=== PATIENT | female | born 1980 | race Caucasian/White ===

== ENCOUNTER 2016-05-28 08:09 | Emergency (ER) | payer MEDICAID ==
[2016-05-28 08:24] VITALS: BP 150/108
--- NOTE | 2016-05-28 08:49 | EDM.PDOC ---
ED HPI ENT - General Chief Complaint: ENT Problem Stated Complaint: TOOTH PAIN Time Seen by Provider: 05/28/16 08:35 Source: Reports: Patient History Limitations: Reports: No limitations - History of Present Illness INITIAL COMMENTS - FREE TEXT/NARRATIVE: In this lady comes in with tooth pain for 2 days. One of her very carious teeth broke. She's complaining of severe pain. She doesn't have any dental insurance so doesn't get regular dental care and she's lost many teeth. She's in every day smoker. The [facility] closed today and Tuesday. She's not able to get care anywhere else. She did try some Anbesol said that didn't work - Related Data Allergies/ADRs: Allergies Allergy/AdvReac Type Severity Reaction Status Date / Time codeine Allergy Itching Verified 05/28/16 08:24 ketorolac tromethamine Allergy Airway Verified 05/28/16 08:24 [From Toradol] Tightness Sulfa (Sulfonamide Allergy Airway Verified 05/28/16 08:24 Antibiotics) Tightness tramadol Allergy Hives Verified 05/28/16 08:24 Home Meds: Home Meds NK [No Known Home Meds] 05/28/16 [History] Past Medical History HEENT History: Reports: Impaired vision Gastrointestinal History: Reports: GERD, Hemorrhoids, Other (see below) Other Gastrointestinal History: ulcers. 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 pill addiction Endocrine/Metabolic History: Reports: Hyperthyroidism Oncologic (Cancer) History: Reports: Other (see below) Other Oncologic History: pre cancer cells cervix Dermatologic History: Reports: Psoriasis - Infectious Disease History Infectious Disease History: Reports: Chicken pox, Shingles - Past Surgical History HEENT Surgical History: Reports: Tonsillectomy, Other (see below) Other HEENT Surgeries/Procedures: throat surgery Social & Family History - Tobacco Use Smoking Status *Q: Current Every Day Smoker Years of Tobacco use: 20 Packs/Tins Daily: 0.5 Second Hand Smoke Exposure: Yes - Caffeine Use Caffeine Use: Reports: Soda - Alcohol Use Days Per Week of Alcohol Use: 0 - Recreational Drug Use Recreational Drug Use: No Recreational Drug Type: Reports: Oxycodone ED ROS ENT - Review of Systems Review Of Systems: ROS reveals no pertinent complaints other than HPI. ED EXAM, ENT - Physical Exam Exam: See Below Exam Limited By: No limitations General Appearance: alert, WD/WN, moderate distress Mouth/Throat: Other (There are a number of missing and carious teeth. One of the teeth to the upper right jaw bleeds when the canine to severely carious and looks like about half of it is broken off. The area that is hurting. No obvious abscess.) Course - Vital Signs Last Recorded V/S: Last Vital Signs Temp 36.6 C 05/28/16 08:20 Pulse 118 H 05/28/16 08:20 Resp 14 05/28/16 08:20 BP 150/108 H 05/28/16 08:20 Pulse Ox 98 05/28/16 08:20 Departure - Departure Time of Disposition: 08:49 Disposition: Home, Self-Care 01 Condition: fair Clinical Impression: Fracture of tooth, Dental caries extending into dentin Forms: ED Department Discharge Additional Instructions: Taken Narco 5/500 (#18) one or 2 tablets every 4 hours as needed for pain. This medication can cause sedation use with caution Take Penicillin VK 500 mg 4 times a day. See dentist as soon as possible.
== END 2016-05-28 09:00 | disposition home or self-care (01) ==
LOC: JP.ED 08:09
DX: S02.5XXA Fracture of tooth (traumatic), initial encounter for closed fracture (principal); K02.62 Dental caries on smooth surface penetrating into dentin; F17.210 Nicotine dependence, cigarettes, uncomplicated; Z98.890 Other specified postprocedural states; Z88.2 Allergy status to sulfonamides; Z88.5 Allergy status to narcotic agent; Z88.8 Allergy status to other drugs, medicaments and biological substances
CPT/HCPCS: 99283

== ENCOUNTER 2016-06-18 13:36 | Emergency (ER) | payer MEDICAID ==
[2016-06-18 14:16] VITALS: BP 139/93
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
--- NOTE | 2016-06-21 12:27 | CR ---
Shoulder Comp Rt HISTORY: Injury FINDINGS: There is normal alignment of the glenohumeral as well as AC joints. No fractures are demon strated. There are no significant degenerative changes. The soft tissues are unremarkable. IMPRESSION: Negative exam of the shoulder.
== END 2016-06-18 15:38 | disposition home or self-care (01) ==
LOC: JP.ED 13:36
DX: S40.011A Contusion of right shoulder, initial encounter (principal); S14.3XXA Injury of brachial plexus, initial encounter; F17.210 Nicotine dependence, cigarettes, uncomplicated; K21.9 Gastro-esophageal reflux disease without esophagitis; F43.10 Post-traumatic stress disorder, unspecified; E03.9 Hypothyroidism, unspecified; Z88.5 Allergy status to narcotic agent; Z88.2 Allergy status to sulfonamides; Z90.89 Acquired absence of other organs; W19.XXXA Unspecified fall, initial encounter
CPT/HCPCS: 73030-26-RT; 73030-RT; 99284

== ENCOUNTER 2016-06-21 11:02 | Emergency (ER) | payer MEDICAID ==
[2016-06-21 12:29] VITALS: BP 150/96
--- NOTE | 2016-06-21 13:43 | EDM.PDOC ---
[id number] 4d PAIN RT ARM GETTING WORSE Time Seen by Provider: 06/21/16 12:40 Source: Reports: Patient History Limitations: Reports: No limitations - History of Present Illness INITIAL COMMENTS - FREE TEXT/NARRATIVE: 35-year-old in for recheck of persistent right neuropathic pain of the shoulder. She's having difficulty performing her duties at work. She still has pain but has intense radiating down the anterior aspect of the arm, numbness and paresthesias into the thumb and first finger and it feels "cold". Method of Injury: direct blow, fall Severity: moderate Pain/Injury Location: Reports: upper extremity, right Consciousness: Reports: no loss of consciousness Allergies/ADRs: Allergies codeine Allergy (Verified 06/21/16 12:32) Itching ketorolac tromethamine [From Toradol] Allergy (Verified 06/21/16 12:32) Airway Tightness Sulfa (Sulfonamide Antibiotics) Allergy (Verified 06/21/16 12:32) Airway Tightness tramadol Allergy (Verified 06/21/16 12:32) Hives Home Medications: Ambulatory Orders Acetaminophen [Tylenol Extra Strength] 1 tab PO ASDIRECTED 06/21/16 [Confirmed 06/21/16] Hydrocodone/Acetaminophen [Aurora 5-325] 1 tab PO Q6H 06/21/16 [Confirmed ] methylPREDNISolone [Medrol] 1 dose PO ASDIRECTED 06/21/16 [Confirmed 06/21/16] Past Medical History HEENT History: Reports: Impaired vision Gastrointestinal History: Reports: GERD, Hemorrhoids, Other (see below) Other Gastrointestinal History: ulcers. 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 Endocrine/Metabolic History: Reports: Hyperthyroidism Oncologic (Cancer) History: Reports: Other (see below) Other Oncologic History: pre cancer cells cervix Dermatologic History: Reports: Psoriasis - Infectious Disease History Infectious Disease History: Reports: Chicken pox - Past Surgical History HEENT Surgical History: Reports: Tonsillectomy, Other (see below) Other HEENT Surgeries/Procedures: throat surgery Female Surgical History: Reports: Other (see below) Other Female Surgeries/Procedures: cervical biopsy Social & Family History - Tobacco Use Smoking Status *Q: Current Every Day Smoker Years of Tobacco use: 20 Packs/Tins Daily: 0.5 Second Hand Smoke Exposure: No - Caffeine Use Caffeine Use: Reports: Soda Other Caffeine Use: 12 per day - Alcohol Use Days Per Week of Alcohol Use: 0 - Recreational Drug Use Recreational Drug Use: No Recreational Drug Type: Reports: Oxycodone Review of Systems - Review of Systems Review Of Systems: See Below Constitutional: Denies: fever Respiratory: Denies: Shortness of Breath Cardiovascular: Denies: chest pain GI/Abdominal: Denies: Abdominal pain Skin: Denies: bruising Neurological: Reports: Paresthesia (Right hand) Trauma Exam - Physical Exam Exam: See Below Exam Limited By: No limitations General Appearance: Reports: alert, no apparent distress (Patient is in no distress but is uncomfortable) Head: Reports: atraumatic Neck: Reports: non-tender Extremities: Reports: other (Has significant tenderness to palpation over the anterior aspect of the shoulder and upper right arm. Increased pain with abduction, even passive. Slight decreased grasp strength of the right hand possibly due to pain) Course - Vital Signs Last Recorded V/S: Last Vital Signs Temp 97.2 F 06/21/16 12:35 Pulse 84 06/21/16 12:35 Resp 18 06/21/16 12:35 BP 150/96 H 06/21/16 12:35 Pulse Ox 98 06/21/16 12:35 - Orders/Labs/Meds Orders: Active Orders 24 hr Category Date Time Status DME for Discharge [COMM] Stat Oth 06/21/16 12:47 Ordered - Re-Assessments/Exams Free Text/Narrative Re-Assessment/Exam: 06/21/16 13:42 Patient was given a refill of her hydrocodone for pain, placed in a sling and was asked to rest the arm for the next 2 days. She was given 20 total hydrocodone to use sparingly. Departure - Departure Time of Disposition: 13:52 Disposition: Home, Self-Care 01 Condition: good Clinical Impression: Brachial plexus injury, right Qualifiers: Encounter type: subsequent encounter Qualified Code(s): S14.3XXD - Injury of brachial plexus, subsequent encounter Instructions: Shoulder Pain Referrals: PCP,None [Primary Care Provider] - Forms: ED Department Discharge Care Plan Goals: Sling arm for the next 2 days. Pain medication as needed and finish the steroid as prescribed. Followup will be established. - My Orders Last 24 Hours: My Active Orders 06/21/16 12:47 DME for Discharge [COMM] Stat - Assessment/Plan Last 24 Hours: My Active Orders 06/21/16 12:47 DME for Discharge [COMM] Stat
== END 2016-06-21 13:51 | disposition home or self-care (01) ==
LOC: JP.ED 11:02
DX: S14.3XXD Injury of brachial plexus, subsequent encounter (principal); F17.210 Nicotine dependence, cigarettes, uncomplicated; Z85.41 Personal history of malignant neoplasm of cervix uteri; Z98.890 Other specified postprocedural states; Z88.2 Allergy status to sulfonamides; Z88.5 Allergy status to narcotic agent; Z88.8 Allergy status to other drugs, medicaments and biological substances; W19.XXXA Unspecified fall, initial encounter
CPT/HCPCS: 99283

== ENCOUNTER 2016-09-23 08:53 | Emergency (ER) | payer MEDICAID ==
[2016-09-23 09:40] VITALS: BP 128/87
[2016-09-23] MEDS ORDERED: Acetaminophen/oxyCODONE 325-5 MG Tab PO ONE (10:05)
[2016-09-23] MEDS ORDERED: Lidocaine 4% Top Soln 50 ML Bottle MUCMEM ONE (10:06)
--- NOTE | 2016-09-23 10:13 | EDM.PDOC ---
ED HPI GENERAL MEDICAL PROBLEM - General Chief Complaint: ENT Problem Stated Complaint: TOOTH PAIN Time Seen by Provider: 09/23/16 10:07 Source of Information: Reports: Patient, Family History Limitations: Reports: No Limitations - History of Present Illness INITIAL COMMENTS - FREE TEXT/NARRATIVE: pt arrived stating that she broke a tooth in rt upper incisor area. She was eating chicken strips and it broke. Onset: Today Duration: Hour(s): Location: Reports: Face Associated Symptoms: Reports: No Other Symptoms Right Upper Tooth/Teeth Pain Score (Numeric/FACES): 10 - Related Data Allergies Allergy/AdvReac Type Severity Reaction Status Date / Time codeine Allergy Itching Verified 09/23/16 09:49 ketorolac tromethamine Allergy Airway Verified 09/23/16 09:49 [From Toradol] Tightness Sulfa (Sulfonamide Allergy Airway Verified 09/23/16 09:49 Antibiotics) Tightness tramadol Allergy Hives Verified 09/23/16 09:49 Home Meds: Home Meds NK [No Known Home Meds] 09/23/16 [History] Past Medical History HEENT History: Reports: Impaired Vision Gastrointestinal History: Reports: GERD, Hemorrhoids, Other (See Below) Other Gastrointestinal History: ulcers. 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 Endocrine/Metabolic History: Reports: Hyperthyroidism Oncologic (Cancer) History: Reports: Other (See Below) Other Oncologic History: pre cancer cells cervix Dermatologic History: Reports: Psoriasis - Infectious Disease History Infectious Disease History: Reports: Chicken Pox - Past Surgical History HEENT Surgical History: Reports: Tonsillectomy, Other (See Below) Female Surgical History: Reports: Other (See Below) Social & Family History - Tobacco Use Smoking Status *Q: Unknown Ever Smoked Years of Tobacco use: 20 Packs/Tins Daily: 0.5 Second Hand Smoke Exposure: No - Caffeine Use Caffeine Use: Reports: Soda Other Caffeine Use: 12 per day - Alcohol Use Days Per Week of Alcohol Use: 0 - Recreational Drug Use Recreational Drug Use: No Recreational Drug Type: Reports: Oxycodone ED ROS ENT - Review of Systems Review Of Systems: See Below Constitutional: Reports: No Symptoms HEENT: Reports: Dental Pain Respiratory: Reports: No Symptoms Cardiovascular: Reports: No Symptoms Endocrine: Reports: No Symptoms GI/Abdominal: Reports: No Symptoms : Reports: No Symptoms Musculoskeletal: Reports: No Symptoms Skin: Reports: No Symptoms ED EXAM, ENT - Physical Exam Exam: See Below Text/Narrative:: pt broke a tooth in the rt upper incisor area last nite. She is having severe pain in the area. Exam Limited By: No Limitations General Appearance: Alert Ears: Normal External Exam Nose: Normal Inspection Mouth/Throat: Dental Pain, Dental Tenderness (pt has a very carious rt upper incisor that broke off last nite. She appears to have a early abcess developing above the tooth area. ), Other Course - Vital Signs Last Recorded V/S: Last Vital Signs Temp 36.7 C 09/23/16 09:47 Pulse 120 H 09/23/16 09:47 Resp 16 09/23/16 09:47 BP 128/87 09/23/16 09:47 Pulse Ox 99 09/23/16 09:47 - Orders/Labs/Meds Meds: Medications Discontinued Medications Generic Name Dose Route Start Last Admin Trade Name Abdirashid PRN Reason Stop Dose Admin Lidocaine HCl 1 ml 09/23/16 10:06 09/23/16 10:37 Xylocaine 4% Top Soln MUCMEM 09/23/16 10:07 1 ml ONETIME ONE Administration Oxycodone/Acetaminophen 1 tab 09/23/16 10:05 09/23/16 10:31 Percocet 325-5 Mg PO 09/23/16 10:06 1 tab ONETIME ONE Administration - Re-Assessments/Exams Free Text/Narrative Re-Assessment/Exam: 09/23/16 10:17 pt was given percocet and a pack with 4 % lidocaine. Departure - Departure Time of Disposition: 10:17 Disposition: Home, Self-Care 01 Condition: Fair Clinical Impression: Infected tooth - Discharge Information Instructions: Dental [facility] Referrals: Aria Velez NP [Primary Care Provider] - Forms: ED Department Discharge Care Plan Goals: dental referal for tuesday, amoxicillin 500mg tid, [facility] and try to cover the tooth, lidocaine pack with 4 % lidocaine. Motrin 600mg tid, norco 5/325 q8h prn for severe pain # 8
== END 2016-09-23 10:51 | disposition home or self-care (01) ==
LOC: JP.ED 08:53
DX: S02.5XXA Fracture of tooth (traumatic), initial encounter for closed fracture (principal); K04.7 Periapical abscess without sinus; K21.9 Gastro-esophageal reflux disease without esophagitis; F41.9 Anxiety disorder, unspecified; F32.9 Major depressive disorder, single episode, unspecified; E05.90 Thyrotoxicosis, unspecified without thyrotoxic crisis or storm; Z88.2 Allergy status to sulfonamides; Z88.5 Allergy status to narcotic agent; Z87.440 Personal history of urinary (tract) infections; Z98.890 Other specified postprocedural states; X58.XXXA Exposure to other specified factors, initial encounter
CPT/HCPCS: 99283; A9270

== ENCOUNTER 2016-11-24 12:42 | Emergency (ER) | payer MEDICAID ==
[2016-11-24 12:58] VITALS: BP 134/85
[2016-11-24] MEDS ORDERED: HYDROmorphone 1 MG/ML Syringe IM ONE (13:13)
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
== END 2016-11-24 13:41 | disposition home or self-care (01) ==
LOC: JP.ED 12:42
DX: T23.561A Corrosion of first degree of back of right hand, initial encounter (principal); T23.562A Corrosion of first degree of back of left hand, initial encounter; Z88.5 Allergy status to narcotic agent; Z88.2 Allergy status to sulfonamides
CPT/HCPCS: 96372; 99283; J1170

== ENCOUNTER 2016-12-16 07:42 | Emergency (ER) | payer MEDICAID ==
[2016-12-16] MEDS ORDERED: Acetaminophen/oxyCODONE 325-5 MG Tab PO ONE (08:21)
[2016-12-16] MEDS ORDERED: Ondansetron 4 MG/2 ML SDV IVPUSH ONE (08:22)
--- NOTE | 2016-12-16 08:28 | EDM.PDOC ---
ED HPI GENERAL MEDICAL PROBLEM - General Chief Complaint: General Stated Complaint: BROKE TOOTH/ FLU SYMPTOMS Time Seen by Provider: 12/16/16 08:25 Source of Information: Reports: Patient History Limitations: Reports: No Limitations - History of Present Illness INITIAL COMMENTS - FREE TEXT/NARRATIVE: pt has been ill all week and this am she broke a tooth in the upper rt molar area. She is having alot of pain and i unable to chew. Onset: Other (pt has been ill all week but she broke the tooth this am. ) Duration: Hour(s): Location: Reports: Face, Other (pt has had diarrhea all week. ) Associated Symptoms: Reports: Weakness Tooth/Teeth Pain Score (Numeric/FACES): 10 - Related Data Allergies Allergy/AdvReac Type Severity Reaction Status Date / Time codeine Allergy Itching Verified 12/16/16 08:02 ketorolac tromethamine Allergy Airway Verified 12/16/16 08:02 [From Toradol] Tightness Sulfa (Sulfonamide Allergy Airway Verified 12/16/16 08:02 Antibiotics) Tightness tramadol Allergy Hives Verified 12/16/16 08:02 morphine AdvReac Headache Verified 12/16/16 08:02 Home Meds: Home Meds NK [No Known Home Meds] 09/23/16 [History] Past Medical History HEENT History: Reports: Impaired Vision Gastrointestinal History: Reports: GERD, Hemorrhoids, Other (See Below) Other Gastrointestinal History: ulcers. 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: , Other (See Below) Other OB/BYN History: "precancerous cervix cells" Musculoskeletal History: Reports: Other (See Below) Other Musculoskeletal History: right arm contusion Neurological History: Reports: Headaches, Chronic Psychiatric History: Reports: Addiction, Anxiety, Depression, PTSD, Other (See Below) Other Psychiatric History: 2012 pain pill addiction Endocrine/Metabolic History: Reports: Hyperthyroidism Oncologic (Cancer) History: Reports: Other (See Below) Other Oncologic History: pre cancer cells cervix Dermatologic History: Reports: Psoriasis - Infectious Disease History Infectious Disease History: Reports: Chicken Pox - Past Surgical History HEENT Surgical History: Reports: Tonsillectomy, Other (See Below) Other HEENT Surgeries/Procedures: surg. on throat Social & Family History - Tobacco Use Smoking Status *Q: Heavy Tobacco Smoker Years of Tobacco use: 22 Packs/Tins Daily: 1 Second Hand Smoke Exposure: No - Caffeine Use Caffeine Use: Reports: Soda Other Caffeine Use: 12 per day - Alcohol Use Days Per Week of Alcohol Use: 0 - Recreational Drug Use Recreational Drug Use: No Recreational Drug Type: Reports: Oxycodone ED ROS GENERAL - Review of Systems Review Of Systems: See Below Constitutional: Reports: Fever, Chills, Malaise, Other (pt has been ill for 1 week) HEENT: Reports: No Symptoms Respiratory: Reports: No Symptoms Cardiovascular: Reports: No Symptoms Endocrine: Reports: No Symptoms GI/Abdominal: Reports: Diarrhea, Nausea : Reports: No Symptoms Musculoskeletal: Reports: No Symptoms Skin: Reports: No Symptoms Neurological: Reports: No Symptoms Psychiatric: Reports: No Symptoms ED EXAM, GENERAL - Physical Exam Exam: See Below Free Text/Narrative:: Pt arrived with ahistory of a fever off nd on for the past week. She has not had a sig cough. She has had diarrhea. She thinks the diarrhea has slowed down. She broke a tooth last nite and now she is having pain in the dental area. She goes to the [facility] dental. Exam Limited By: No Limitations General Appearance: Alert, Moderate Distress Ears: Normal TMs Nose: Normal Inspection Throat/Mouth: Normal Inspection Head: Atraumatic Neck: Normal Inspection Respiratory/Chest: No Respiratory Distress Cardiovascular: Regular Rate, Rhythm GI/Abdominal: Soft, Non-Tender (Female) Exam: Deferred Rectal (Female) Exam: Deferred Back Exam: Normal Inspection Extremities: Normal Inspection Neurological: Alert, Oriented, Normal Cognition Psychiatric: Depressed Mood Course - Vital Signs Last Recorded V/S: Last Vital Signs Temp 37.1 C 12/16/16 07:59 Pulse 82 12/16/16 08:51 Resp 18 12/16/16 08:51 BP 130/84 12/16/16 08:51 Pulse Ox 98 12/16/16 08:51 - Orders/Labs/Meds Orders: Active Orders 24 hr Category Date Time Status CLOSTRIDIUM DIFFICILE BY PCR [RM] Stat Lab 12/16/16 08:24 Uncollected CULTURE STOOL + SHIGATOX [RM] Stat Lab 12/16/16 08:25 Uncollected Sodium Chloride 0.9% [Normal Saline] 1,000 ml Med 12/16/16 08:30 Active IV ASDIRECTED Medication Orders Sodium Chloride (Normal Saline) 1,000 mls @ 999 mls/hr IV ASDIRECTED BELEN Last Admin: 12/16/16 08:46 Dose: 999 mls/hr Labs: Laboratory Tests 12/16/16 12/16/16 12/16/16 Range/Units 07:54 07:54 10:02 WBC 7.5 (4.5-11.0) K/uL RBC 4.44 (3.30-5.50) M/uL Hgb 14.5 (12.0-15.0) g/dL Hct 42.0 (36.0-48.0) % MCV 95 (80-98) fL MCH 33 H (27-31) pg MCHC 35 (32-36) % Plt Count 195 (150-400) K/uL Neut % (Auto) 56 (36-66) % Lymph % (Auto) 33 (24-44) % [place] % (Auto) 9 H (2-6) % Eos % (Auto) 1 L (2-4) % Baso % (Auto) 1 (0-1) % Sodium 141 (140-148) mmol/L Potassium 3.2 L (3.6-5.2) mmol/L Chloride 107 (100-108) mmol/L Carbon Dioxide 26 (21-32) mmol/L Anion Gap 11.2 (5.0-14.0) mmol/L BUN 10 (7-18) mg/dL Creatinine 0.9 (0.6-1.0) mg/dL Est Cr Clr Drug Dosing 67.70 mL/min Estimated GFR (MDRD) > 60 (>60) Glucose 116 H (74-106) mg/dL Calcium 9.0 (8.5-10.1) mg/dL Total Bilirubin 0.3 (0.2-1.0) mg/dL AST 13 L (15-37) U/L ALT 16 (12-78) U/L Alkaline Phosphatase 48 (46-116) U/L Total Protein 7.0 (6.4-8.2) g/dL Albumin 4.1 (3.4-5.0) g/dL Globulin 2.9 (2.3-3.5) g/dL Albumin/Globulin Ratio 1.4 (1.2-2.2) Urine Color Yellow Urine Appearance Clear Urine pH 7.0 (4.5-8.0) Ur Specific [place] 1.015 (1.008-1.030) Urine Protein Negative (NEGATIVE) mg/dL Urine Glucose (UA) Normal (NEGATIVE) mg/dL Urine Ketones Negative (NEGATIVE) mg/dL Urine Occult Blood Negative (NEGATIVE) Urine Nitrite Negative (NEGATIVE) Urine Bilirubin Negative (NEGATIVE) Urine Urobilinogen Normal (NORMAL) mg/dL Ur Leukocyte Esterase Negative (NEGATIVE) Urine RBC 0-5 (0-5) Urine WBC 0-5 (0-5) Ur Epithelial Cells Many Amorphous Sediment Few Urine Bacteria Few Urine Mucus Many Meds: Medications Generic Name Dose Route Start Last Admin Trade Name Freq PRN Reason Stop Dose Admin Sodium Chloride 1,000 mls @ 999 mls/hr 12/16/16 08:30 12/16/16 08:46 Normal Saline IV 999 mls/hr ASDIRECTED BELEN Administration Discontinued Medications Generic Name Dose Route Start Last Admin Trade Name Freq PRN Reason Stop Dose Admin Potassium Chloride 20 meq/ 100 mls @ 50 mls/hr 12/16/16 08:56 Premix IV 12/16/16 10:55 ONETIME ONE Ondansetron HCl 4 mg 12/16/16 08:22 12/16/16 09:00 Zofran IVPUSH 12/16/16 08:23 Not Given ONETIME ONE Oxycodone/Acetaminophen 1 tab 12/16/16 08:21 12/16/16 08:49 Percocet 325-5 Mg PO 12/16/16 08:22 1 tab ONETIME ONE Administration Potassium Chloride 40 meq 12/16/16 09:49 12/16/16 10:00 Klor-Con M20 PO 12/16/16 09:50 40 meq ONETIME ONE Administration - Re-Assessments/Exams Free Text/Narrative Re-Assessment/Exam: 12/16/16 10:03 pt had a temp of 99. She melgar a normal wbc. Her influ was neg. Her chest xray was clear. Her chems show that her k is low. She had a liter of fluids. She was given zoforan. Her kidney funtion looks good. She had no loose stools while here. The broken tooth is very uncomfortable. There is some drainage which appears pus like. She was given pwercocet 5/325 while in ER. 12/16/16 10:13 ua is clear. Departure - Departure Time of Disposition: 10:07 Disposition: Home, Self-Care 01 Condition: Fair Clinical Impression: Dehydration, Flu syndrome, Broken tooth - Discharge Information Referrals: PCP,None [Primary Care Provider] - Forms: ED Department Discharge Care Plan Goals: dental appt tuesday. If diarrhea continues bring in a stool speciman, motrin 600mg tid, norco 5/325 q6h prn for severe pain # 8, keflex 500mg tid. - My Orders Last 24 Hours: My Active Orders 12/16/16 08:24 CLOSTRIDIUM DIFFICILE BY PCR [RM] Stat 12/16/16 08:25 CULTURE STOOL + SHIGATOX [RM] Stat 12/16/16 08:30 Sodium Chloride 0.9% [Normal Saline] 1,000 ml IV ASDIRECTED - Assessment/Plan Last 24 Hours: My Active Orders 12/16/16 08:24 CLOSTRIDIUM DIFFICILE BY PCR [RM] Stat 12/16/16 08:25 CULTURE STOOL + SHIGATOX [RM] Stat 12/16/16 08:30 Sodium Chloride 0.9% [Normal Saline] 1,000 ml IV ASDIRECTED
[2016-12-16] MEDS ORDERED: Sodium Chloride 0.9% 1,000 ML IV SCH (08:30)
--- NOTE | 2016-12-16 08:45 | CR ---
Chest 2V INDICATION: fever FINDINGS: Comparison 08/10/2012. No change. Negative chest.
[2016-12-16 08:51] VITALS: BP 130/84
[2016-12-16] MEDS ORDERED: Potassium Chloride 20 MEQ in Premix Bag 1 BAG IV ONE (08:56)
[2016-12-16] MEDS ORDERED: Potassium Chloride 20 MEQ Tab.ER PO ONE (09:49)
== END 2016-12-16 10:26 | disposition home or self-care (01) ==
LOC: JP.ED 07:42
DX: S02.5XXA Fracture of tooth (traumatic), initial encounter for closed fracture (principal); E86.0 Dehydration; J11.1 Influenza due to unidentified influenza virus with other respiratory manifestations; F17.210 Nicotine dependence, cigarettes, uncomplicated; Z88.5 Allergy status to narcotic agent; Z88.2 Allergy status to sulfonamides; Z88.6 Allergy status to analgesic agent; Z88.8 Allergy status to other drugs, medicaments and biological substances; X58.XXXA Exposure to other specified factors, initial encounter
CPT/HCPCS: 36415; 71020; 80053; 81001; 85025; 87804; 96365; 96366; 99284; A9270; J7040

== ENCOUNTER 2017-05-28 14:03 | Emergency (ER) | payer MEDICAID ==
[2017-05-28] MEDS ORDERED: Bupivacaine 0.5%/EPINEPHrine 1:200,000 1.8 ML Cartridge INJECT ONE (16:37)
--- NOTE | 2017-05-28 16:41 | EDM.PDOC ---
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 No facial swelling. Her dentist is not open on Tuesday or Saturdays. 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 DIRECTOR: Reports: Other (see below) (none) Left Lower Tooth/Teeth Pain Score (Numeric/FACES): 10 - Related Data Allergies Allergy/AdvReac Type Severity Reaction Status Date / Time codeine Allergy Itching Verified 12/16/16 08:02 ketorolac tromethamine Allergy Airway Verified 12/16/16 08:02 [From Toradol] Tightness Sulfa (Sulfonamide Allergy Airway Verified 12/16/16 08:02 Antibiotics) Tightness tramadol Allergy Hives Verified 12/16/16 08:02 morphine AdvReac Headache Verified 12/16/16 08:02 Home Meds: Home Meds Acetaminophen/HYDROcodone [Gilbert 325-5 MG] 1 - 2 tab PO Q6H PRN #20 tab [Rx] Penicillin V Potassium [IJD: Penicillin V Potassium] 500 mg PO .EVERY 6 HOURS # 40 tab 05/28/17 [Rx] Past Medical History HEENT History: Reports: Impaired Vision Gastrointestinal History: Reports: GERD, Hemorrhoids, Other (See Below) Other Gastrointestinal History: ulcers. 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 History: Reports: , Other (See Below) Other OB/BYN History: "precancerous cervix cells" Musculoskeletal History: Reports: Other (See Below) Other Musculoskeletal History: right arm contusion Neurological History: Reports: Headaches, Chronic Psychiatric History: Reports: Addiction, Anxiety, Depression, PTSD, Other (See Below) Other Psychiatric History: 2011 pain pill addiction Endocrine/Metabolic History: Reports: Hyperthyroidism Oncologic (Cancer) History: Reports: Other (See Below) Other Oncologic History: pre cancer cells cervix Dermatologic History: Reports: Psoriasis - Infectious Disease History Infectious Disease History: Reports: Chicken Pox - Past Surgical History HEENT Surgical History: Reports: Tonsillectomy, Other (See Below) Other HEENT Surgeries/Procedures: surg. on throat Social & Family History - Tobacco Use Smoking Status *Q: Heavy Tobacco Smoker Years of Tobacco use: 22 Packs/Tins Daily: 1 Second Hand Smoke Exposure: No - Caffeine Use Caffeine Use: Reports: Soda Other Caffeine Use: 12 per day - Alcohol Use Days Per Week of Alcohol Use: 0 - Recreational Drug Use Recreational Drug Use: No Recreational Drug Type: Reports: Oxycodone ED ROS ENT - Review of Systems Review Of Systems: See Below Constitutional: Reports: No Symptoms HEENT: Reports: Dental Pain Respiratory: Reports: No Symptoms Cardiovascular: Reports: No Symptoms Endocrine: Reports: No Symptoms GI/Abdominal: Reports: No Symptoms : Reports: No Symptoms Skin: Reports: No Symptoms Neurological: Reports: No Symptoms ED EXAM, ENT - Physical Exam Exam: See Below Exam Limited By: No Limitations General Appearance: Alert, WD/WN, Mild Distress, Other (crying) Eye Exam: Bilateral Eye: Normal Inspection Ears: Normal External Exam, Normal Canal, Hearing Grossly Normal, Normal TMs Nose: Normal Inspection, Normal Mucousa, No Blood Mouth/Throat: Normal Inspection, Normal Gums, Normal Lips, Normal Oropharynx, Dental Abcess, Dental Pain, Dental Tenderness Head: Atraumatic, Normocephalic Neck: Normal Inspection, Supple, Non-Tender Respiratory/Chest: No Respiratory Distress, Lungs Clear, Normal Breath Sounds, No Accessory Muscle Use Cardiovascular: Regular Rate, Rhythm Extremities: Normal Inspection Neurological: Alert, Oriented, CN II-XII Intact, Normal Cognition, No Motor/ Sensory Deficits Psychiatric: Normal Affect, Normal Mood Skin: Warm, Dry, Intact, Normal Color, No Rash Lymphatic: No Adenopathy Course - Vital Signs Text/Narrative:: Submandibular nerve block with 1.8 ml of 0.5% bupivacaine with epi Last Recorded V/S: Last Vital Signs Temp 36.6 C 05/28/17 14:16 Pulse 129 H 05/28/17 14:16 Resp 20 05/28/17 14:16 BP 130/101 H 05/28/17 14:16 Pulse Ox 96 05/28/17 14:16 - Orders/Labs/Meds Meds: Medications Discontinued Medications Generic Name Dose Route Start Last Admin Trade Name Chocoq PRN Reason Stop Dose Admin Bupivacaine HCl/Epinephrine Bitart 1.8 ml 05/28/17 16:37 Marcaine 0.5%/Epinephrine 1:200,000 INJECT 05/28/17 16:38 ONETIME ONE Departure - Departure Time of Disposition: 16:47 Disposition: Home, Self-Care 01 Condition: Fair Clinical Impression: Dental caries extending into dentin, Dental abscess, Dental caries Clinical Impression: (Ruled Out): Broken tooth - Discharge Information Prescriptions: Acetaminophen/HYDROcodone [Gilbert 325-5 MG] 1 - 2 tab PO Q6H PRN #20 tab PRN Reason: Pain Penicillin V Potassium [IJD: Penicillin V Potassium] 500 mg PO .EVERY 6 HOURS # 40 tab Referrals: Jennifer Navarro CNM [Primary Care Provider] - Forms: ED Department Discharge
[2017-05-28 17:13] VITALS: BP 137/95
== END 2017-05-28 17:15 | disposition home or self-care (01) ==
LOC: JP.ED 14:03
DX: K04.7 Periapical abscess without sinus (principal); K02.9 Dental caries, unspecified; K21.9 Gastro-esophageal reflux disease without esophagitis; F17.210 Nicotine dependence, cigarettes, uncomplicated; Z88.2 Allergy status to sulfonamides; Z88.5 Allergy status to narcotic agent; Z79.899 Other long term (current) drug therapy; Z87.442 Personal history of urinary calculi
CPT/HCPCS: 64400; 99283-25

== ENCOUNTER 2017-05-31 14:36 | Emergency (ER) | payer MEDICAID ==
[2017-05-31 15:09] VITALS: BP 152/102
--- NOTE | 2017-05-31 15:37 | EDM.PDOC ---
ED HPI GENERAL MEDICAL PROBLEM - General Chief Complaint: ENT Problem Stated Complaint: LT SIDE FACE/TOOTH PAIN Time Seen by Provider: 05/31/17 15:19 Source of Information: Reports: Patient, Old Records, RN Notes Reviewed History Limitations: Reports: No Limitations - History of Present Illness INITIAL COMMENTS - FREE TEXT/NARRATIVE: 36-year-old female presents emergency department today with ongoing dental pain , she was evaluated in the emergency department 3 days prior received a dental block, hydrocodone and penicillin she states she stopped using the hydrocodone because it does not provide relief for her she is still taking the penicillin she has had increased swelling over her jaw but no fevers Right Tooth/Teeth Pain Score (Numeric/FACES): 10 - Related Data Allergies Allergy/AdvReac Type Severity Reaction Status Date / Time codeine Allergy Itching Verified 12/16/16 08:02 ketorolac tromethamine Allergy Airway Verified 12/16/16 08:02 [From Toradol] Tightness Sulfa (Sulfonamide Allergy Airway Verified 12/16/16 08:02 Antibiotics) Tightness tramadol Allergy Hives Verified 12/16/16 08:02 morphine AdvReac Headache Verified 12/16/16 08:02 Home Meds: Home Meds Acetaminophen/HYDROcodone [Bracey 325-5 MG] 1 - 2 tab PO Q6H PRN #20 tab [Rx] Penicillin V Potassium [IJD: Penicillin V Potassium] 500 mg PO .EVERY 6 HOURS # 40 tab 05/28/17 [Rx] Past Medical History HEENT History: Reports: Impaired Vision Gastrointestinal History: Reports: GERD, Hemorrhoids, Other (See Below) Other Gastrointestinal History: ulcers. 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 on throat Social & Family History - Tobacco Use Smoking Status *Q: Current Every Day Smoker Years of Tobacco use: 20 Packs/Tins Daily: 0.5 Second Hand Smoke Exposure: No - Caffeine Use Caffeine Use: Reports: None Other Caffeine Use: 12 per day - Alcohol Use Days Per Week of Alcohol Use: 0 - Recreational Drug Use Recreational Drug Use: No Recreational Drug Type: Reports: Oxycodone ED ROS ENT - Review of Systems Review Of Systems: See Below Constitutional: Reports: No Symptoms HEENT: Reports: Dental Pain Respiratory: Reports: No Symptoms Cardiovascular: Reports: No Symptoms ED EXAM, ENT - Physical Exam Exam: See Below Text/Narrative:: Gross is moist and pink no erythema or exudate noted in the soft palate is midline uvula is midline dentition is poor she does have a broken tooth #19 is tender to the touch there is some appreciable edema along the jawline left side Exam Limited By: No Limitations General Appearance: Alert, Mild Distress Respiratory/Chest: No Respiratory Distress Course - Vital Signs Last Recorded V/S: Last Vital Signs Temp 97.2 F 05/31/17 15:07 Pulse 92 05/31/17 15:07 Resp 20 05/31/17 15:07 BP 152/102 H 05/31/17 15:07 Pulse Ox Departure - Departure Time of Disposition: 15:36 Disposition: Home, Self-Care 01 Condition: Fair Clinical Impression: Dental abscess, Dental caries - Discharge Information Referrals: PCP,None [Primary Care Provider] - Additional Instructions: Please report to the dental clinic tomorrow morning at 8:15 - Assessment/Plan Plan: Assessment Acuity = acute Site and laterality = dental abscess Etiology = dental caries Manifestations = pain, facial edema Location of injury = Home Lab values = none Plan Recommend continue using penicillin referral written for dentistry she will follow up tomorrow morning at 8:15 she has been evaluated in the dental clinic multiple times has no showed multiple times This note was dictated using [employer] voice recognition software please call with any questions on syntax or dinesh.
== END 2017-05-31 16:07 | disposition home or self-care (01) ==
LOC: JP.ED 14:36
DX: K04.7 Periapical abscess without sinus (principal); K02.9 Dental caries, unspecified; F17.210 Nicotine dependence, cigarettes, uncomplicated; Z88.5 Allergy status to narcotic agent; Z88.8 Allergy status to other drugs, medicaments and biological substances; Z88.2 Allergy status to sulfonamides
CPT/HCPCS: 99283

== ENCOUNTER 2017-09-01 21:24 | Emergency (ER) | payer MEDICAID ==
[2017-09-01 21:42] VITALS: BP 132/95
--- NOTE | 2017-09-01 22:31 | EDM.PDOC ---
ED HPI GENERAL MEDICAL PROBLEM - General Chief Complaint: Back Pain or Injury Stated Complaint: HURT BACKSIDE LIFTING Time Seen by Provider: 09/01/17 21:50 Source of Information: Reports: Patient History Limitations: Reports: No Limitations - History of Present Illness INITIAL COMMENTS - FREE TEXT/NARRATIVE: 37-year-old female who earlier today was lifting a heavy object when she felt a pull in her left posterior hip and low back, and now is having significant pain radiating down the left buttock into the left thigh. She is having difficulty bearing weight. After resting this evening she could barely get out of bed. She has no pain or symptoms going beyond the knee on the left side. Onset: Sudden Duration: Hour(s): (6-7 hours ago) Location: Reports: Back, Lower Extremity, Left Severity: Moderate Worsens with: Reports: Other (Weightbearing), Movement Associated Symptoms: Reports: No Other Symptoms Lower Back Pain Score (Numeric/FACES): 9 - Related Data Allergies Allergy/AdvReac Type Severity Reaction Status Date / Time codeine Allergy Itching Verified 12/16/16 08:02 ketorolac tromethamine Allergy Airway Verified 12/16/16 08:02 [From Toradol] Tightness Sulfa (Sulfonamide Allergy Airway Verified 12/16/16 08:02 Antibiotics) Tightness tramadol Allergy Hives Verified 12/16/16 08:02 morphine AdvReac Headache Verified 12/16/16 08:02 Home Meds: Home Meds Acetaminophen/HYDROcodone [[place] 325-5 MG] 1 - 2 tab PO Q6H PRN #20 tab [Rx] Penicillin V Potassium [IJD: Penicillin V Potassium] 500 mg PO .EVERY 6 HOURS # 40 tab 05/28/17 [Rx] Past Medical History HEENT History: Reports: Impaired Vision Gastrointestinal History: Reports: GERD, Hemorrhoids, Other (See Below) Other Gastrointestinal History: ulcers. 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: , Other (See Below) Other WAREHOUSE ORDER SELECTOR History: "precancerous cervix cells" Musculoskeletal History: Reports: Other (See Below) Other Musculoskeletal History: right arm contusion Neurological History: Reports: Headaches, Chronic Psychiatric History: Reports: Addiction, Anxiety, Depression, PTSD, Other (See Below) Other Psychiatric History: 2011 pain pill addiction Endocrine/Metabolic History: Reports: Hyperthyroidism Oncologic (Cancer) History: Reports: Other (See Below) Other Oncologic History: pre cancer cells cervix Dermatologic History: Reports: Psoriasis - Infectious Disease History Infectious Disease History: Reports: Chicken Pox - Past Surgical History HEENT Surgical History: Reports: Tonsillectomy, Other (See Below) Other HEENT Surgeries/Procedures: surg. on throat Social & Family History - Tobacco Use Smoking Status *Q: Current Every Day Smoker Years of Tobacco use: 25 Packs/Tins Daily: 1 - Caffeine Use Caffeine Use: Reports: Soda Other Caffeine Use: 12 per day - Recreational Drug Use Recreational Drug Use: No ED ROS GENERAL - Review of Systems Review Of Systems: See Below Constitutional: Denies: Fever Respiratory: Denies: Shortness of Breath GI/Abdominal: Denies: Abdominal Pain, Nausea, Vomiting : Reports: No Symptoms Neurological: Denies: Paresthesia ED EXAM,LOWER BACK PAIN/INJURY - Physical Exam Exam: See Below Exam Limited By: No Limitations General Appearance: Alert, Mild Distress (Looks very uncomfortable, can't sit down) Respiratory/Chest: No Respiratory Distress Back Exam: Other (Patient is exquisitely tender to palpation over the left SI joint, L5-S1 area into the left buttock. She has increased pain with flexion of the hip but no radiculopathy symptoms) Course - Vital Signs Last Recorded V/S: Last Vital Signs Temp 97.1 F 09/01/17 21:45 Pulse 95 09/01/17 21:45 Resp 16 09/01/17 21:45 BP 132/95 H 09/01/17 21:45 Pulse Ox 99 09/01/17 21:45 - Re-Assessments/Exams Free Text/Narrative Re-Assessment/Exam: 09/01/17 22:29 I believe this patient is an SI or L5-S1 sprain, she'll be placed on 50 mg of prednisone daily for 5-6 days and I also gave her 10 hydrocodone for extra pain control. Increase activity as tolerated and recheck next week if not improving satisfactorily. Departure - Departure Time of Disposition: 22:42 Disposition: Home, Self-Care 01 Condition: Good Clinical Impression: Sacroiliac (ligament) sprain Qualifiers: Encounter type: initial encounter Qualified Code(s): S33.6XXA - Sprain of sacroiliac joint, initial encounter - Discharge Information *PRESCRIPTION DRUG MONITORING PROGRAM REVIEWED*: Yes *COPY OF PRESCRIPTION DRUG MONITORING REPORT IN PATIENT DILLON: No Instructions: Back Pain, Adult, [id number] Referrals: PCP,None [Primary Care Provider] - Forms: ED Department Discharge Care Plan Goals: Take 5 pills of prednisone daily with food for the next 5-6 days. Tylenol should help and take stronger pain medication as directed if needed. Recheck next week if not improving satisfactorily. Increase activity as tolerated.
== END 2017-09-01 22:36 | disposition home or self-care (01) ==
LOC: JP.ED 21:24
DX: S33.6XXA Sprain of sacroiliac joint, initial encounter (principal); F17.210 Nicotine dependence, cigarettes, uncomplicated; Z88.5 Allergy status to narcotic agent; Z88.6 Allergy status to analgesic agent; Z88.2 Allergy status to sulfonamides; X50.0XXA Overexertion from strenuous movement or load, initial encounter
CPT/HCPCS: 99283

== ENCOUNTER 2017-10-28 12:03 | Emergency (ER) | payer MEDICAID ==
[2017-10-28 12:15] VITALS: BP 142/95
--- NOTE | 2017-10-28 12:23 | EDM.PDOC ---
ED HPI GENERAL MEDICAL PROBLEM - General Chief Complaint: Lower Extremity Injury/Pain Stated Complaint: RT FOOT SWOLLE/RE-INJURED Time Seen by Provider: 10/28/17 12:23 Source of Information: Reports: Patient History Limitations: Reports: No Limitations - History of Present Illness INITIAL COMMENTS - FREE TEXT/NARRATIVE: Mehnaz presents today for complaints of pain to her right foot/ankle after re- injuring the area last night when she fell in a hole and twisted her ankle at 2130. Currently she has an MRI pending per podiatry. Cam-walking boot in place today, however she did not have it on last night. Right Feet Pain Score (Numeric/FACES): 8 - Related Data Allergies Allergy/AdvReac Type Severity Reaction Status Date / Time ketorolac tromethamine Allergy Severe Airway Verified 10/28/17 12:16 [From Toradol] Tightness Sulfa (Sulfonamide Allergy Severe Airway Verified 10/28/17 12:16 Antibiotics) Tightness codeine Allergy Itching Verified 10/28/17 12:16 tramadol Allergy Hives Verified 10/28/17 12:16 morphine AdvReac Headache Verified 10/28/17 12:16 Home Meds: Home Meds NK [No Known Home Meds] 10/20/17 [History] Past Medical History HEENT History: Reports: Impaired Vision Gastrointestinal History: Reports: GERD, Hemorrhoids, Other (See Below) Other Gastrointestinal History: ulcers. 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: "precancerous cervix cells" Musculoskeletal History: Reports: Other (See Below) Other Musculoskeletal History: right arm contusion Neurological History: Reports: Headaches, Chronic Psychiatric History: Reports: Addiction, Anxiety, Depression, PTSD, Other (See Below) Other Psychiatric History: 2012 pain pill addiction Endocrine/Metabolic History: Reports: Hyperthyroidism Oncologic (Cancer) History: Reports: Other (See Below) Other Oncologic History: pre cancer cells cervix Dermatologic History: Reports: Psoriasis - Infectious Disease History Infectious Disease History: Reports: Chicken Pox, Shingles - Past Surgical History Head Surgeries/Procedures: Reports: None HEENT Surgical History: Reports: Tonsillectomy, Other (See Below) Other HEENT Surgeries/Procedures: surg. on throat GI Surgical History: Reports: None Other Female Surgeries/Procedures: PRECANCEROUS CELLS ON CERVIX Endocrine Surgical History: Reports: None Neurological Surgical History: Reports: None Musculoskeletal Surgical History: Reports: None Oncologic Surgical History: Reports: None Dermatological Surgical History: Reports: None Social & Family History - Tobacco Use Smoking Status *Q: Current Every Day Smoker Years of Tobacco use: 25 Packs/Tins Daily: 0.5 Used Tobacco, but Quit: No - Caffeine Use Caffeine Use: Reports: Soda Other Caffeine Use: 12 per day - Recreational Drug Use Recreational Drug Use: No Review of Systems - Review of Systems Review Of Systems: See Below Constitutional: Reports: No Symptoms Respiratory: Reports: No Symptoms Cardiovascular: Reports: No Symptoms Musculoskeletal: Reports: Foot Pain, Other (Right foot/ankle pain ) Skin: Reports: Bruising, Other (edema) Neurological: Reports: No Symptoms Psychiatric: Reports: No Symptoms ED EXAM, GENERAL - Physical Exam Exam: See Below Free Text/Narrative:: Mehnaz is an alert and oriented 37 year old female presenting for re-injury to her right foot/ankle after falling in a hole last night without her cam-walking boot on. Exam Limited By: No Limitations General Appearance: Alert, WD/WN, No Apparent Distress Head: Atraumatic, Normocephalic Respiratory/Chest: No Respiratory Distress, Lungs Clear, Normal Breath Sounds, No Accessory Muscle Use, Chest Non-Tender Cardiovascular: Normal Peripheral Pulses, Regular Rate, Rhythm, No Murmur, No Rub Peripheral Pulses: 2+: Dorsalis Pedis (L), Dorsalis Pedis (R) Back Exam: Normal Inspection, Full Range of Motion. No: CVA Tenderness (R), CVA Tenderness (L) Extremities: Normal Capillary Refill, Limited Range of Motion, Other (1 to 2+ edema of right foot, ecchymosis to medial and lateral aspects of foot extending to all toes. Sensation in tact, skin warm to touch. ). No: Increased Warmth Neurological: Alert, Oriented, CN II-XII Intact, Normal Cognition, Normal Reflexes, No Motor/Sensory Deficits Psychiatric: Normal Affect, Normal Mood Skin Exam: Warm, Dry, Ecchymosis. No: Erythema, Increased Warmth Lymphatic: No Adenopathy Course - Vital Signs Last Recorded V/S: Last Vital Signs Temp 36.4 C 10/28/17 12:21 Pulse 100 10/28/17 12:21 Resp 17 10/28/17 12:21 BP 142/95 H 10/28/17 12:21 Pulse Ox 97 10/28/17 12:21 - Radiology Interpretation Free Text/Narrative:: X-ray reviewed with Dr. Lowe and with patient. No acute findings. Noted per radiology mild lateral soft tissue swelling of foot/ankle. Did not slight abnormality at base of 3rd metatarsal - unsure if old or not. Departure - Departure Time of Disposition: 13:06 Disposition: Home, Self-Care 01 Condition: Good Clinical Impression: Sprain of right foot, Sprain of right ankle - Discharge Information *PRESCRIPTION DRUG MONITORING PROGRAM REVIEWED*: Yes *COPY OF PRESCRIPTION DRUG MONITORING REPORT IN PATIENT DILLON: No Instructions: Foot Sprain Referrals: PCP,None [Primary Care Provider] - Forms: ED Department Discharge Additional Instructions: You have been evaluated and treated for sprain right foot and ankle - re- injury. To prevent re-injury, make sure you have your cam-walking boot on at all times when up. Keep cecilio wrap on to help with swelling. Ice the area for 20 minutes at a time, 20 minutes off as frequently as you can. Rest and elevate the foot to help with swelling. Ibuprofen 800mg by mouth three times a day as needed for pain. Hydrocodone 5/325mg for uncontrolled pain, instymed prescription provided for 1 tablet twice daily for 3 days as needed. Follow up with MRI Tuesday per Dr. Ruiz. Follow up with podiatry as directed. Return to the emergency room for emergent needs. - Assessment/Plan Plan: Patient evaluated and treated for sprain right foot and ankle - re-injury. To prevent re-injury, make sure to have cam-walking boot on at all times when up. Keep cecilio wrap on to help with swelling. Ice the area for 20 minutes at a time, 20 minutes off as frequently as you can. Rest and elevate the foot to help with swelling. Ibuprofen 800mg by mouth three times a day as needed for pain. Hydrocodone 5/325mg for uncontrolled pain, instymed prescription provided for 1 tablet twice daily for 3 days as needed. Follow up with MRI Tuesday per Dr. Ruiz. Follow up with podiatry as directed. Return to the emergency room for emergent needs.
--- NOTE | 2017-10-28 12:56 | CR ---
Foot Comp Min 3V Rt HISTORY: fall in hole, right foot/ankle pain FINDINGS: No acute fracture or dislocation is identified. Bony architecture and joint spaces are preserved. S oft tissues are unremarkable. IMPRESSION: No acute right foot abnormality identified. No significant interval change compared with 10/20/2017.
--- NOTE | 2017-10-28 12:57 | CR ---
Ankle Min 3V Rt HISTORY: fall in hole, right ankle/foot pain FINDINGS: No acute fracture or dislocation is identified. Bony architecture and ankle mortise are preserved. T here is mild soft tissue swelling laterally. IMPRESSION: Mild lateral soft tissue swelling. No acute fracture or dislocation right ankle is identified.
== END 2017-10-28 13:15 | disposition home or self-care (01) ==
LOC: JP.ED 12:03
DX: S93.401A Sprain of unspecified ligament of right ankle, initial encounter (principal); S93.601A Unspecified sprain of right foot, initial encounter; F17.210 Nicotine dependence, cigarettes, uncomplicated; Z88.6 Allergy status to analgesic agent; Z88.5 Allergy status to narcotic agent; Z88.2 Allergy status to sulfonamides; W17.89XA Other fall from one level to another, initial encounter
CPT/HCPCS: 73610-26-RT; 73610-RT; 73630-26-RT; 73630-RT; 99283; 99284